=== PATIENT | female | born 1965 | race Caucasian/White ===

== ENCOUNTER → 2017-10-24 | Outpatient (CLI) | payer BC, OTHER | LOC: RAD 12:36 | DX: J45.909 Unspecified asthma, uncomplicated (principal) ==

== ENCOUNTER → 2017-12-20 | Outpatient (CLI) | payer BC, OTHER ==
--- NOTE | ~2017-12-20 | PATH ---
[facility] [place] [address] PATHOLOGY RPT PROCEDURE Name: ADELINE BUENROSTRO Room #: REG [facility]#: [id number] Admission: 12/20/17 Date of : 63 Discharge: Report #: [id number] Path Case #: [id number] Note [facility] Accession Number: [id number] TESTS RESULT FLAG UNITS REF RANGE LAB Clinician Provided Cytology Information No. of containers..01 Other (Miscellaneous) Source: LEFT THYROID DIAGNOSIS: LEFT THYROID, FINE NEEDLE ASPIRATION INCONCLUSIVE. [place] CATEGORY III. FOLLICULAR LESION OF UNDETERMINED SIGNIFICANCE. SPECIMEN CONSISTS OF ABUNDANT FOLLICULAR CELLS WITH DENSE COLLOID. THE DIFFERENTIAL DIAGNOSIS INCLUDES CELLULAR ADENOMATOID NODULE WITH HURTHLE CELLS OR A FOLLICULAR NEOPLASM WITH HURTHLE CELLS. THIS INTERPRETATION INCLUDES EVALUATION OF A CELL BLOCK. NEGATIVE FOR NUCLEAR FEATURES OF PAPILLARY THYROID CARCINOMA. Comment: Examination shows abundant follicular cells in macrofollicles and few with Hurthle cell changes. Dense colloid is present in the background. Findings may be suggestive of an adenomatoid nodule with Hurthle cell metaplasia or a Hurthle cell adenoma. Nature of the sample precludes evaluation for a carcinoma comprised of follicular cells. Please note sample may not be entirely brand representative.Correlate clinically and follow-up as indicated. Candy Vendor slides were coreviewed by Dr. Moira Brandon. An RNA sample is sent for additional testing. Please refer to a separate report. Pathologist ICD10: 02 R89.6 Signed out by: Gail Mortensen MD, Pathologist NPI- [id number] Performed by: Georgie Cardoza, Bingo Floater ([facility]) Gross description: 01 32ML, RED, CLEAR /LCS FLAG LEGEND: L-Low Normal,H-High Normal,LL-Alert Low,HH-Alert High <-Panic Low,>-Panic High,A-Abnormal,AA-Critical Abnormal Performed at: 01 [facility] [address] [place] [address] [address] PATHOLOGY RPT PROCEDURE Name: ADELINE BUENROSTRO Room #: REG [facility].#: [id number] Admission: 12/20/17 Date of : 63 Discharge: Report #: [id number] Path Case #: [id number] Ramos Arce MD, [address] [id number] Gail Mortensen MD, Performed at: [address], [place], [place] [id number] MD Ramos Arce MD Phone: [phone]
== END | disposition home or self-care (01) ==
LOC: ULTRA 08:34
DX: E07.9 Disorder of thyroid, unspecified (principal); Z85.828 Personal history of other malignant neoplasm of skin; Z79.899 Other long term (current) drug therapy

== ENCOUNTER → 2020-03-25 | Outpatient (CLI) | payer BC, OTHER | LOC: LAB 11:04 | PROVIDERS: ATTEND Nurse Practitioner | DX: R53.83 Other fatigue (principal); M79.10 Myalgia, unspecified site; Z20.828 Contact with and (suspected) exposure to other viral communicable diseases ==